=== PATIENT | female | born 1965 | race Hispanic/Latino ===

== ENCOUNTER → 2018-04-13 | Outpatient (CLI) | payer OTHER ==
--- NOTE | 2018-04-13 15:04 | Diagnostic Imaging Report ---
EXAM: DXA BONE DENSITY INDICATIONS: Screening for osteoporsis COMPARISON: None. FINDINGS: Proximal left femur bone mineral density (BMD) (g/cm2):0.635 Femur T-score (standard deviation relative to young adult mean BMD): -2.4 Femur Z-score (standard deviation relative to age-matched control group):-1.7 Lumbar bone mineral density (BMD) (g/cm2):0.618 Lumbar T-score (standard deviation relative to young adult mean BMD): -3.9 Lumbar Z-score (standard deviation relative to age-matched control group):-2.8 Change since prior exam (%): Femur:Not applicable. Spine:Not applicable. Change since oldest prior exam (%): Femur:Not applicable. Spine:Not applicable. CONCLUSION: 1. Bone mineral density in the left femur is classified as osteopenia. Fracture risk is increased. 2. Bone mineral density in the spine is classified as osteoporosis. Fracture risk is increased. World Health Organization Classification: *The Z-score is provided for informational purposes. The T-score is preferable for clinical decisions. When comparing exams, a change of >4% is considered statistically significant. SUGGESTED RECOMMENDATIONS: Normal & Osteopenia:Consideration should be given to use of calcium supplementation, daily multiple vitamins and adequate exercise, as preventive measures against osteoporosis, if clinically indicated. Osteoporosis & Severe Osteoporosis:In addition to the above, consideration should be given to medical therapy against osteoporosis, if clinically indicated. Honorio Ibarra D.O. Dictated by: Honorio Ibarra D.O. on 04/13/2018 at 15:16 Electronically approved by: Honorio Ibarra D.O. on 04/13/2018 at 15:16
--- NOTE | 2018-04-14 09:14 | Diagnostic Imaging Report ---
#[id number] - USBRECOMRT ULTRASOUND OF THE RIGHT BREAST : 04/13/2018 Comparison is made to exam dated: 03/11/2018 mammogram - [facility]. Color flow and real-time ultrasound were performed on the entire right breast with scanning in all four quadrants, retroareolar region and the right axilla. No cystic or solid lesions are noted. IMPRESSION: NEGATIVE There is no sonographic evidence of malignancy. A 1 year screening mammogram is recommended. Honorio Ibarra Jr., D.O. cw/:04/13/2018 15:38:48 Ceo And President: LAWSON PORTILLO RDMS, [facility] letter sent: Normal Exam Ultrasound BI-RADS: 1 Negative
--- NOTE | 2018-04-14 09:14 | Diagnostic Imaging Report ---
#[id number] - USBRECOMLT ULTRASOUND OF THE LEFT BREAST : 04/13/2018 Comparison is made to exam dated: 03/11/2018 mammogram - [facility]. Color flow and real-time ultrasound were performed on the entire left breast with scanning in all four quadrants, retroareolar region and the left axilla. No cystic or solid lesions are noted. IMPRESSION: NEGATIVE There is no sonographic evidence of malignancy. A 1 year screening mammogram is recommended. Honorio Ibarra Jr., D.O. cw/:04/13/2018 15:40:18 Laminate Floor Installer: LAWSON PORTILLO RDMS, [facility] letter sent: Normal Exam Ultrasound BI-RADS: 1 Negative
== END ==
LOC: DX 12:51
PROVIDERS: ATTEND Obstetrics & Gynecology
DX: Z12.31 Encounter for screening mammogram for malignant neoplasm of breast (principal); Z13.820 Encounter for screening for osteoporosis
CPT/HCPCS: 77080

== ENCOUNTER → 2021-06-05 | Outpatient (CLI) | payer BC | LOC: MAMMO 15:34 | PROVIDERS: ATTEND Obstetrics & Gynecology | DX: Z12.31 Encounter for screening mammogram for malignant neoplasm of breast (principal) | CPT/HCPCS: 77067 ==

== ENCOUNTER → 2021-07-09 | Outpatient (CLI) | payer BC | LOC: MAMMO 08:50 | PROVIDERS: ATTEND Family Medicine | DX: R92.2 Inconclusive mammogram (principal) ==

== ENCOUNTER → 2024-07-04 | Outpatient (REF) | payer OTHER | LOC: MAMMO 09:43 | PROVIDERS: ATTEND Obstetrics & Gynecology | DX: Z12.31 Encounter for screening mammogram for malignant neoplasm of breast (principal) | CPT/HCPCS: 77067 ==